=== PATIENT | male | born 1955 | race African-American/Black ===

== ENCOUNTER 2018-05-23 22:55 | Emergency (ER) | payer MEDICAID ==
[~2018-05-23] VITALS: Ht 185.4 cm; Wt 94.3 kg
[~2018-05-23 22:55] MED LIST: ACET-1158; BENA20TA14; CALCTAB83; DEXL60CA3; DIAZ10TA3; NAPR-223; [UNRECOGNIZED DRUG - OTHER]; [UNRECOGNIZED DRUG - OTHER]
[2018-05-23 23:33] VITALS: BP 156/78
[2018-05-24] MEDS ORDERED: KETOROLAC TROMETH 60MG/2ML VIAL IM ONE (03:15)
== END 2018-05-24 03:32 | disposition home or self-care (01) ==
LOC: ER 22:55 → EDBD 22:55 → ER 05-24 03:32
DX: S43.402A Unspecified sprain of left shoulder joint, initial encounter (principal); I10 Essential (primary) hypertension; K21.9 Gastro-esophageal reflux disease without esophagitis; F17.210 Nicotine dependence, cigarettes, uncomplicated; Z79.899 Other long term (current) drug therapy; W18.30XA Fall on same level, unspecified, initial encounter; Y93.89 Activity, other specified; Y92.89 Other specified places as the place of occurrence of the external cause; Y99.8 Other external cause status
CPT/HCPCS: 73030; 93005; 96372; 99284; J1885

== ENCOUNTER → 2020-04-30 | Emergency (ER) | payer MEDICAID ==
[~2020-04-30] VITALS: Ht 182.9 cm; Wt 113.4 kg
[~2020-04-30] MED LIST changes: -DEXL60CA3; +DEXL60CA4; +KETOROLAC TROMETH 60MG/2ML VIAL IM ONE; +cefTRIAXone W LIDOCAINE 1 GM IM IM ONE
[2020-04-30 14:36] VITALS: BP 110/74
== END | disposition home or self-care (01) ==
LOC: EDUNIT# 11:11 → ER 11:22 → EDBD 11:22
DX: S66.912A Strain of unspecified muscle, fascia and tendon at wrist and hand level, left hand, initial encounter (principal); M70.32 Other bursitis of elbow, left elbow; F17.210 Nicotine dependence, cigarettes, uncomplicated; F12.10 Cannabis abuse, uncomplicated; I10 Essential (primary) hypertension; M19.90 Unspecified osteoarthritis, unspecified site; K21.9 Gastro-esophageal reflux disease without esophagitis; Z86.73 Personal history of transient ischemic attack (TIA), and cerebral infarction without residual deficits; Z71.6 Tobacco abuse counseling; X58.XXXA Exposure to other specified factors, initial encounter; Y93.89 Activity, other specified; Y99.8 Other external cause status; Y92.89 Other specified places as the place of occurrence of the external cause
CPT/HCPCS: 73200; 96372; 99284; J0696; J1885

== ENCOUNTER 2020-08-11 11:58 | Emergency (ER) | payer MEDICAID ==
[~2020-08-11] VITALS: Ht 185.4 cm; Wt 97.5 kg
[~2020-08-11 11:58] MED LIST changes: -KETOROLAC TROMETH 60MG/2ML VIAL IM ONE; -cefTRIAXone W LIDOCAINE 1 GM IM IM ONE
[2020-08-11 12:43] VITALS: BP 172/90
[2020-08-11] MEDS ORDERED: ONDANSETRON HCL 4 MG/2 ML VIAL IV ONE (14:45)
[2020-08-11] MEDS ORDERED: SODIUM CHLORIDE 0.9% 1,000 ML IV ONE (14:45)
== END 2020-08-11 15:21 | disposition left against medical advice (07) ==
LOC: EDBD 11:58 → ER 11:58
DX: K29.00 Acute gastritis without bleeding (principal); K58.9 Irritable bowel syndrome, unspecified; K21.9 Gastro-esophageal reflux disease without esophagitis; I10 Essential (primary) hypertension; F17.210 Nicotine dependence, cigarettes, uncomplicated; Z86.73 Personal history of transient ischemic attack (TIA), and cerebral infarction without residual deficits
CPT/HCPCS: 74176; 93005

== ENCOUNTER 2025-01-08 12:11 | Emergency (ER) | payer OTHER, MEDICAID ==
[~2025-01-08] VITALS: Ht 175.3 cm; Wt 59.0 kg
[~2025-01-08 12:11] MED LIST changes: -ACET-1158; +ACET500T58; +BENA-36; -BENA20TA14
--- NOTE | 2025-01-08 12:38 | ED.PDOC ---
History of Present Illness(SKN HPI Comments 69 year old male presents to the ED via EMS with a chief complaint of RT foot wound check. PMHx CVA, HTN, PUD, GERD. Per EMS, patient has been experiencing wound on RT foot for the past 3 months, has been experiencing pain for the past month. Patient has a wound care nurse, goes every other day to change dressing, clean wound. Patient usually takes La Fontaine for pain. Denies fever, chills, nausea, vomiting, chest pain, shortness of breath. No other symptoms or modifying factors present at this time. Chief Complaint: Wound Check Time Seen by MD: 13:20 Primary Care Provider: Ghanshyam History of Present Illness: Medications, Allergies Allergies: Coded Allergies: NO KNOWN ALLERGIES (Unverified , 05/28/11) Home Meds Reported Medications [Phenergan With Codin] No Conflict Check 05/28/11 Naproxen (Naprosyn) 500 Mg Tab 05/28/11 [Hyrodones Es] No Conflict Check 05/28/11 Diazepam (Diazepam) 10 Mg Tab 05/28/11 Dexlansoprazole (Dexilant) 60 Mg Cap 05/28/11 Calcium-Magnesium W/ Vitamin D (Calcium 500) Tab 05/28/11 Benazepril Hcl (Benazepril Hcl) 20 Mg Tab 05/28/11 Acetaminophen (Acetaminophen) 500 Mg Tab 05/28/11 Information Source: Patient, Emergency Med Personnel Mode of Arrival: Ambulatory Severity: Moderate Timing: Months Duration: Since onset Prehospital treatment: Pain Meds (La Fontaine) Location: Foot Mechanism: Preceding Wound Object: None Condition of Object: None Wound Type: Other Past Medical History PAST MEDICAL HISTORY: Arthritis, CVA, GERD, HTN, PUD Surgical History: Denies all surgeries Family History Family History: No family hx of Heart [place] Social History Smoker: Cigarettes Alcohol: Denies ETOH Use Drugs: Marijuana Lives In: Home Constitutional: denies: chills, diaphoresis, fatigue, fever, malaise, sweats, weakness, others EENTM: denies: blurred vision, double vision, ear bleeding, ear discharge, ear drainage, ear pain, ear ringing, eye pain, eye redness, hearing loss, mouth pain, mouth swelling, nasal discharge, nose bleeding, nose congestion, nose pain, photophobia, tearing, throat pain, throat swelling, voice changes, others Respiratory: denies: cough, hemoptysis, orthopnea, SOB at rest, shortness of breath, SOB with excertion, stridor, wheezing, others Cardiovascular: denies: chest pain, dizzy spells, diaphoresis, Dyspnea on exertion, edema, irregular heart beat, left arm pain, lightheadedness, palpitations, PND, syncope, others Gastrointestinal: denies: abdomen distended, abdominal pain, blood streaked bowels, constipated, diarrhea, dysphagia, difficulty swallowing, hematemesis, melena, nausea, poor appetite, poor fluid intake, rectal bleeding, rectal pain, vomiting, others Genitourinary: denies: burning, dysuria, flank pain, frequency, hematuria, incontinence, penile discharge, penile sore, pain, testicle pain, testicle swelling, urgency, others Neurological: denies: dizziness, fainting, headache, left sided numbness, left sided weakness, numbness, paresthesia, pre-existing deficit, right sided numbness, right sided weakness, seizure, speech problems, tingling, tremors, weakness, others Musculoskeletal: denies: back pain, gout, joint pain, joint swelling, muscle pa in, muscle stiffness, neck pain, others Integumetry: reports: wounds (RT foot); denies: bruises, change in color, change in hair/nails, dryness, laceration, lesions, lumps, rash, others Allergic/Immunocompromised: denies: Difficulty Healing, Frequent Infections, Hives, Itching, others Hematologic/Lymphatic: denies: anemia, blood clots, easy bleeding, easy bruising, swollen glands, others Endocrine: denies: excessive hunger, excessive sweating, excessive thirst, excessive urination, flushing, intolerance to cold, intolerance to heat, unexplained weight gain, unexplained weight loss, others Psychiatric: denies: anxiety, bipolar disorder, depression, hopeless, panic disorder, schizophrenia, sleepless, suicidal, others All Other Systems: Reviewed and Negative Physical Exam General Appearance: No Apparent Distress, Normal HEENT: Normal ENT Inspection, Pharynx Normal, TMs Normal Neck: Full Range of Motion, Non-Tender, Normal, Normal Inspection Respiratory: Chest Non-Tender, Lungs Clear, No Accessory Muscle Use, No Res piratory Distress, Normal Breath Sounds Cardiovascular: No Edema, No JVD, No Murmur, No Gallop, Normal Peripheral Pulses, Regular Rate/Rhythm Breast Exam: Deferred Gastrointestinal: No Organomegaly, Non Tender, No Pulsatile Mass, Normal Bowel Sounds, Soft Genitalia: Deferred Pelvic: Deferred Rectal: Deferred Extremities: No calf tenderness, Normal capillary refill, No pedal edema Musculoskeletal : Location: Right Extremity Location: Foot (dorsal aspect with 2.5 cm x 2 cm superficial ulcer) Apperance: Normal Neurologic: Alert, Normal Affect Cerebellar Function: Normal Reflexes: Normal Skin: Other (RT dorsal foot with 2.5 cm x 2 cm superficial ulcer, healing well with no surrounding erythema, no purulent discharge, Properly debrated ) Lymphatic: No Adenopathy Was a procedure done? Was a procedure done?: No Differential Diagnosis (INTG) Differential Diagnosis: Abrasion, Cellulitis, Other (foot ulcer) Differential Diagnosis: Cellulitis X-Ray, Labs, Meds, VS Vital Signs Date Time Temp Pulse Resp B/P (MAP) Pulse Ox O2 Delivery O2 Flow Rate FiO2 01/08/25 12:18 97.6 60 16 167/81 (109) 98 97.6 69-year-old male presents here with superficial ulcer to the right lower extremity. He states it has been causing pain x1 month. He has had the wound x2 months. The wound overall appears well does not appear infected. Appears to be appropriately debrided. He states he has wound care nurse see him every few days. He seems to be most tender around the site around the wound. It is not erythematous doubt cellulitis. I suspect the area around the wound the skin is becoming sensitive is that his seems to be the area where tape continues to be adhere to. I advised him to ask his wound care nurse to use different type of tape and/or to tape the wound in different areas so it is not being taped in the same region. Patient agreeable. He is requesting a La Fontaine for pain which I have given him in the ER. Patient is comfortable with the plan. Time of 1ST Reevaluation: 13:50 Reevaluation 1ST: Unchanged Patient Education/Counseling: Diagnosis, Treatment, Prognosis Family Education/Counseling: No Family Present Departure 1 Departure Time of Disposition: 12:45 Impression: Primary Impression: Foot ulcer Qualified Codes: L97.519 - Non-pressure chronic ulcer of other part of right foot with unspecified severity Disposition: 01 HOME / SELF CARE / HOMELESS Condition: Stable Discharged With: Self Critical Care Note Critical Care Time?: No Stability Stability form required: No Heart Score Heart Score: Heart Score Response (Comments) Value History N/A 0 EKG N/A 0 Age N/A 0 Risk Factors N/A 0 Troponin N/A 0 Total 0 I personally scribed for JALEN DESAI MD ([email or web address]) on 01/08/25 at 12:38. Electronically submitted by Louann Skinner ([email or web address]). I personally scribed for JALEN DESAI MD ([email or web address]) on 01/08/25 at 12:42. Electronically submitted by Louann Skinner ([email or web address]). JALEN DESAI MD January 08, 2025 12:38
[2025-01-08 13:00] VITALS: BP 119/67; PULSE 51; RESP 17; TEMP 97.8; O2SAT 96
[2025-01-08] MEDS: HYDROcodone-ACET 5/325MG TAB PO ONE (13:01)
== END 2025-01-08 13:40 | disposition home or self-care (01) ==
LOC: EDBD 12:11 → ER 12:13
DX: L97.519 Non-pressure chronic ulcer of other part of right foot with unspecified severity (principal); I10 Essential (primary) hypertension; M19.90 Unspecified osteoarthritis, unspecified site; F17.210 Nicotine dependence, cigarettes, uncomplicated; K21.9 Gastro-esophageal reflux disease without esophagitis; Z87.11 Personal history of peptic ulcer disease